=== PATIENT | male | born 1985 | race Caucasian/White ===

== ENCOUNTER 2019-10-14 15:59 | Emergency (ER) | payer MEDICAID ==
[~2019-10-14] VITALS: Ht 162.6 cm; Wt 72.6 kg
[2019-10-14 16:07] VITALS: BP_SYST 145
--- NOTE | 2019-10-14 17:26 | NUR ---
BROUGHT BACK TO [facility] BED AND REPORT GIVEN TO RUSSELL
--- NOTE | 2019-10-14 17:43 | NUR ---
PATIENT PRESENTS TO THE ER WITH HX OF SEVERE PAIN TO HANDS, KNEES AND FEET; STATES HE SUFFERS FROM GOUT AND BELIEVES THIS IS A FLAIR-UP; NO TRAUMA, NO OTHER REMARKABLE S/S; PATIENT TO HW #1 AT 1730 AND ERMD EVALUATION AT 1730
[2019-10-14] MEDS ORDERED: KETOROLAC TROMETHAMINE 60 MG/2 ML VIAL IM ONE (17:45)
--- NOTE | 2019-10-14 17:46 | NUR ---
DR PADILLA AT BEDSIDE FOR EVALUATION
[2019-10-14 18:03] VITALS: BP_SYST 127
--- NOTE | 2019-10-14 18:04 | NUR ---
Patient given written and verbal discharge instructions and verbalizes understanding. ER MD discussed with patient the results and treatment provided. Patient in stable condition. ID arm band removed. Rx of NAPROSYN, ALLOPURINOL, COHCHICINE given. Patient educated on pain management and to follow up with PMD. Pain Scale 0/10. Opportunity for questions provided and answered. Medication side effect fact sheet provided.
== END 2019-10-14 18:04 | disposition home or self-care (01) ==
LOC: SED 15:59
DX: M10.9 Gout, unspecified (principal)
CPT/HCPCS: 96372; 99283; J1885

== ENCOUNTER 2021-04-25 13:49 | Emergency (ER) | payer MEDICAID ==
[~2021-04-25] VITALS: Ht 162.6 cm; Wt 70.3 kg
[2021-04-25 14:11] VITALS: BP_SYST 122
[2021-04-25] MEDS ORDERED: TRAM50TA2 PO (14:51)
[2021-04-25] MEDS ORDERED: IBUP-1969 PO (14:51)
[2021-04-25] MEDS ORDERED: ONDA-8 TL (14:51)
[2021-04-25] MEDS ORDERED: traMADol HCL HCL 50 MG TABLET (ULTRAM) PO ONE (15:00)
[2021-04-25] MEDS ORDERED: KETOROLAC TROMETHAMINE 30 MG VIAL IM ONE (15:00)
[2021-04-25] MEDS ORDERED: ONDANSETRON 4 MG ODT TAB PO ONE (15:00)
[2021-04-25 15:20] VITALS: BP_SYST 150
== END 2021-04-25 15:20 | disposition home or self-care (01) ==
LOC: SED 13:49
DX: M25.521 Pain in right elbow (principal); M25.531 Pain in right wrist; Z79.899 Other long term (current) drug therapy
CPT/HCPCS: 96372; 99283; J1885; Q0162